=== PATIENT | female | born 1955 | race Caucasian/White ===

== ENCOUNTER 2016-06-24 15:33 | Emergency (ER) | payer MEDICARE, OTHER ==
[~2016-06-24 15:33] MED LIST: ATEN25 PO; CALTRA600D PO; CHLORASEPTIC1.4 % MT; CLARIT10 PO; COLCH6 PO; COLCRYS0.6 MG PO; DEP250 PO; DEPAKOT500 PO; DEPAKOTEER PO; DSS PO; FIBER LAXATIVE PO; FIBERCON PO; GINGER; GINGER ROOT PO; IMITREX100 MG PO; KEPPRA1000 MG PO; KEPPRA500 PO; KLOR-CON M2020 MEQ PO; L20 PO; LEVAQUIN750 MG PO; LIOR10 PO; MAXALT-MLT5 MG PO; MAXIMUM D3 PO; MCZ125 PO; MD ANDERSON PO; MIRALAXPKT PO; MOBIC15 MG PO; NEXIUM40 PO; PRILOSEC40 MG PO; REG PO; STOOL SOFTEN100 MG PO; STOOL SOFTEN240 MG PO; TUSSIN OR; ULTRACET PO; ULTRAM50 PO; VIMPAT100 MG PO; ZOMIG5 M1 NAS; [UNRECOGNIZED DRUG - CODE] PO; [UNRECOGNIZED DRUG - OTHER] OR
== END 2016-06-24 16:39 | disposition home or self-care (01) ==
LOC: ER 15:33
DX: S00.03XA Contusion of scalp, initial encounter (principal); S60.222A Contusion of left hand, initial encounter; G80.9 Cerebral palsy, unspecified; I47.1 Supraventricular tachycardia; Z88.0 Allergy status to penicillin; Z88.8 Allergy status to other drugs, medicaments and biological substances; Z79.899 Other long term (current) drug therapy; W19.XXXA Unspecified fall, initial encounter
CPT/HCPCS: 70450; 72125; 72170; 73130-LT; 93005; 99285